=== PATIENT | female | born 1950 | race Caucasian/White ===

== ENCOUNTER 2024-05-06 08:24 | Outpatient (AMB) | payer SELFPAY ==
--- NOTE | 2024-05-06 08:06 | A.OFFPC_ITS ---
Vital Signs 05/06/24 08:37 Height 5 ft 1.26 in Weight 144 lb 2 oz BMI 27.0 BP 112/64 Blood Pressure Location Rt radial Position Sitting Respiration 12 Pulse 74 Pulse Source Pulse Oximeter Temp 98.5 F Temp Source Oral Pulse Oximetry (%) 97 Oxygen Delivery Method Room Air Intake Visit Reasons: Est care Elevated cholesterol Allergies No Known Allergies Allergy (Verified 05/06/24 08:33) Tobacco use date assessed: 05/06/24 Fall risk assessment: No Falls in past year Last assessed Fall Risk: 05/06/24 Dental Screening Dental Screen Date: 05/06/24 Did you have a dental visit in the last 12 months?: Yes HPI HPI Comments History of Present Illness Details The patient is a 73 year old female with a past medical history of hypothyroid, GERD, hyperlipidemia presenting for follow up Hypothyroid: On levothyroxine 88mcg daily GERD: Has hiatal hernia. Mammo 11/2023 Colonoscopy 2019 ROS CONSTITUTIONAL: Denies weight loss, fever and chills. HEENT: Denies changes in vision and hearing. RESPIRATORY: Denies SOB and cough. CV: Denies palpitations and CP GI: Denies abdominal pain, nausea, vomiting and diarrhea. : Denies dysuria and urinary frequency. MSK: Denies new myalgia and joint pain. SKIN: Denies rash and pruritus. NEUROLOGICAL: Denies headache PSYCHIATRIC: Denies recent changes in mood. PHYSICAL EXAM: GENERAL: Alert and oriented x 3. NAD EYES: EOMI. Anicteric. HENT: Moist mucous membranes. No scleral icterus. No cervical lymphadenopathy. LUNGS: Clear to auscultation bilaterally. CARDIOVASCULAR: Regular rate and rhythm. No murmur. No JVD. ABDOMEN: Soft, non-tender +bs EXTREMITIES: No edema. Non-tender. SKIN: No rashes or lesions. Warm. NEUROLOGIC: No focal neurological deficits. CN II-XII grossly intact PSYCHIATRIC: Cooperative. Appropriate mood and affect [facility] Medical History (Updated 05/11/24 @ 11:52 by Magalys Linares MD) Wrist lump Stress incontinence Right inguinal hernia Hypothyroidism Hyperlipidemia GERD (gastroesophageal reflux disease) Family History (Updated 05/06/24 @ 08:09 by Aria Robert CMA) Mother Seizure disorder Paternal Grandmother Myocardial infarction Social History (Updated 05/06/24 @ 08:36 by NANCY Alberto Housing: House Patient Tobacco Use Status: Never used Tobacco e-Cigarette/Vaping Use: Never Used Second Hand Smoke Exposure: Yes (past) Current occupational status: retired Cognitive needs: No Hearing needs: Yes (hearing aids) Vision needs: No Questionnaire PHQ-9 Over the last 2 weeks, how often have you been bothered by any of the following problems? 1. Little interest or pleasure in doing things: not at all 2. Feeling down, depressed, or hopeless: not at all 3. Trouble falling or staying asleep, or sleeping too much: not at all 4. Feeling tired or having little energy: not at all 5. Poor appetite or overeating: not at all 6. Feeling bad about yourself - or that you are a failure or have let yourself or your family down: not at all 7. Trouble concentrating on things, such as reading the newspaper or watching television: not at all 8. Moving or speaking so slowly that other people could have noticed. Or the opposite - being so fidgety or restless that you have been moving around a lot more than usual: not at all 9. Thoughts that you would be better off or of hurting yourself in some way: not at all Total score: 0 Depression Screening Interpretation: Negative Depression Screening Done: Yes 49235 - PHQ-9 Billing: Yes Source: Developed by Drs. Samy Dougherty, Natali Gallegos, Kushal West and colleagues, with an educational jose from [employer] Thrive Questionnaire Date Thrive assessed: 05/06/24 I am a: Patient What is your living situation today?: I have a steady place to live Within the past 12 months, did the food you bought not last and you didn't have the money to get more?: Never true Within the past 12 months, did you worry whether your food would run out before you got money to buy more?: Never true Do you have trouble paying for medicines?: No Do you have trouble getting transportation to medical appointments?: No Do you have trouble paying your heating and electricity bill?: No Do you have trouble taking care of your child, family member or friend?: No Do you have trouble with day-to-day activities such as bathing, preparing meals, shopping, managing finances, etc.?: No Are you currently unemployed and looking for a job?: No Are you interested in more education?: No Please select the resources that you would like help with: None Currently or been in a relationship where the following occur: no concerns reported THRIVE Score: 0 AUDIT C Alcohol Use Questionnaire (AUDIT-C) 1. How often do you have a drink containing alcohol?: Never 3. How often do you have six or more drinks on one occasion?: Never Total Score: 0 COBY-7 AMB Questionnaire COBY-7 Date COBY - 7 assessed: 05/06/24 Feeling nervous, anxious, or on edge: 0 = Not at all Not being able to stop or control worryin = Not at all Worrying too much about different things: 0 = Not at all Trouble relaxin = Not at all Being so restless that it is hard to sit still: 0 = Not at all Becoming easily annoyed or irritable: 0 = Not at all Feeling afraid as if something awful might happen: 0 = Not at all Total COBY-7 score (0-4 normal; 5-9 mild; 10-14 moderate; 15-21 severe): 0 Source: Developed by Drs. Samy Dougherty, Natali Gallegos, Kushal West and colleagues, with an educational jose from [employer] COBY-7 Assessment Billing COBY-7 Assessment Tool: COBY-7 Assessment 13138 Physical exam (Primary Care) Vital Signs: Last Vital Signs Temp 98.5 F 05/06/24 08:37 Pulse 74 05/06/24 08:37 Resp 12 05/06/24 08:37 BP 112/64 05/06/24 08:37 Pulse Ox 97 05/06/24 08:37 Oxygen Delivery Method Room Air 05/06/24 08:37 BMI result Body Mass Index 27.0 Tobacco/Smoking Status: Tobacco use Status Tobacco use date assessed 05/06/24 05/06/24 08:41 Patient Tobacco Use Status Never used Tobacco 05/06/24 08:41 e-Cigarette/Vaping Use Never Used 05/06/24 08:41 PHQ-9: PHQ-9 Score PHQ-9: Total score 0 05/06/24 09:56 Depression Screening Interpretation: Negative Thrive Assessment: Date of Thrive Assessment Date Thrive assessed 05/06/24 05/06/24 08:45 Currently or been in a relationship where the following occur: no concerns reported Assessment and Plan Assessment & Plan (1) GERD (gastroesophageal reflux disease): Code(s): K21.9 - Gastro-esophageal reflux disease without esophagitis Qualifiers: Esophagitis presence: esophagitis presence not specified Qualified Code(s): K21.9 - Gastro-esophageal reflux disease without esophagitis (2) Hyperlipidemia: Code(s): E78.5 - Hyperlipidemia, unspecified Qualifiers: Hyperlipidemia type: mixed hyperlipidemia Qualified Code(s): E78.2 - Mixed hyperlipidemia (3) Hypothyroidism: Code(s): E03.9 - Hypothyroidism, unspecified Qualifiers: 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
[2024-05-06 08:37] VITALS: BP 112/64; PULSE 74; RESP 12; TEMP 36.9; O2SAT 97; BMI 27.0
== END 2024-05-06 10:02 | disposition home or self-care (01) ==
PROVIDERS: Visit Provider Internal Medicine
DX: K21.9 Gastro-esophageal reflux disease without esophagitis (principal); E78.2 Mixed hyperlipidemia; E06.3 Autoimmune thyroiditis; R09.A2 Foreign body sensation, throat
CPT/HCPCS: 99214

== ENCOUNTER 2024-11-17 08:17 | Outpatient (AMB) | payer MEDICARE, SELFPAY ==
--- NOTE | 2024-11-17 08:24 | MHC.PC.OV ---
Vital Signs 11/17/24 08:26 Height 5 ft 1.26 in Weight 146 lb 6 oz BMI 27.4 BP 120/72 Blood Pressure Location Lt brachial Position Sitting Pulse 77 Pulse Source Pulse Oximeter Pulse Oximetry (%) 94 Oxygen Delivery Method Room Air Intake Visit Reasons: annual wellness Intake Note: Physical [employer] Officer Required: No Allergies No Known Allergies Allergy (Verified 11/17/24 08:25) Tobacco use date assessed: 11/17/24 Dental Screening Dental Screen Date: 05/06/24 HPI HPI Comments History of Present Illness Details The patient is a 74 year old female with a past medical history of hypothyroid, GERD, hyperlipidemia presenting for AWV Hypothyroid: On levothyroxine 88mcg daily. Denies hyper/hypothyroid symptoms GERD: Has hiatal hernia. Not taking PPI. Has infrequent heartburn, burping Mammo 11/2023 Colonoscopy 2018-Dr Ortiz Eye doctor-Dr Jonathon GARCIA reviewed. 01/12 memory. Neg depression. Neg fall risk. Independent ADLs. Care team reviewed. Medications reconciled ROS CONSTITUTIONAL: Denies weight loss, fever and chills. HEENT: Denies changes in vision and hearing. RESPIRATORY: Denies SOB and cough. CV: Denies palpitations and CP GI: Denies abdominal pain, nausea, vomiting and diarrhea. : Denies dysuria and urinary frequency. MSK: Denies new myalgia and joint pain. SKIN: Denies rash and pruritus. NEUROLOGICAL: Denies headache PSYCHIATRIC: Denies recent changes in mood. PHYSICAL EXAM: GENERAL: Alert and oriented x 3. NAD EYES: EOMI. Anicteric. HENT: Moist mucous membranes. No scleral icterus. No cervical lymphadenopathy. LUNGS: Clear to auscultation bilaterally. CARDIOVASCULAR: Regular rate and rhythm. No murmur. No JVD. ABDOMEN: Soft, non-tender +bs EXTREMITIES: No edema. Non-tender. SKIN: No rashes or lesions. Warm. NEUROLOGIC: No focal neurological deficits. CN II-XII grossly intact PSYCHIATRIC: Cooperative. Appropriate mood and affect [facility] Medical History Wrist lump Stress incontinence Right inguinal hernia Hypothyroidism Hyperlipidemia GERD (gastroesophageal reflux disease) Family History Mother Seizure disorder Paternal Grandmother Myocardial infarction Social History Housing: House Alcohol intake: never Patient Tobacco Use Status: Never used Tobacco e-Cigarette/Vaping Use: Never Used Second Hand Smoke Exposure: Yes (past) Use of substances other than those prescribed or required for medical reasons: No Current occupational status: retired Cognitive needs: No Hearing needs: Yes (hearing aids) Vision needs: No Questionnaire PHQ-9 Over the last 2 weeks, how often have you been bothered by any of the following problems? 1. Little interest or pleasure in doing things: not at all 2. Feeling down, depressed, or hopeless: not at all 3. Trouble falling or staying asleep, or sleeping too much: not at all 4. Feeling tired or having little energy: not at all 5. Poor appetite or overeating: not at all 6. Feeling bad about yourself - or that you are a failure or have let yourself or your family down: not at all 7. Trouble concentrating on things, such as reading the newspaper or watching television: not at all 8. Moving or speaking so slowly that other people could have noticed. Or the opposite - being so fidgety or restless that you have been moving around a lot more than usual: not at all 9. Thoughts that you would be better off or of hurting yourself in some way: not at all Total score: 0 Depression Screening Interpretation: Negative Depression Screening Done: Yes 56066 - PHQ-9 Billing: Yes Source: Developed by Drs. Samy Dougherty, Natali Gallegos, Kushal West and colleagues, with an educational jose from [email or web address] Thrive Questionnaire Date Thrive assessed: 11/17/24 I am a: Patient What is your living situation today?: I have a steady place to live Within the past 12 months, did the food you bought not last and you didn't have the money to get more?: Never true Within the past 12 months, did you worry whether your food would run out before you got money to buy more?: Never true Do you have trouble paying for medicines?: No Do you have trouble getting transportation to medical appointments?: No Do you have trouble paying your heating and electricity bill?: No Do you have trouble taking care of your child, family member or friend?: No Do you have trouble with day-to-day activities such as bathing, preparing meals, shopping, managing finances, etc.?: No Are you currently unemployed and looking for a job?: No Are you interested in more education?: No Please select the resources that you would like help with: None Currently or been in a relationship where the following occur: No concerns reported THRIVE Score: 0 AUDIT C Alcohol Use Questionnaire (AUDIT-C) 1. How often do you have a drink containing alcohol?: Never Total Score: 0 COBY-7 AMB Questionnaire COBY-7 Date COBY - 7 assessed: 11/17/24 Feeling nervous, anxious, or on edge: 1 = Several days Not being able to stop or control worryin = Not at all Worrying too much about different things: 0 = Not at all Trouble relaxin = Not at all Being so restless that it is hard to sit still: 0 = Not at all Becoming easily annoyed or irritable: 0 = Not at all Feeling afraid as if something awful might happen: 0 = Not at all Total COBY-7 score (0-4 normal; 5-9 mild; 10-14 moderate; 15-21 severe): 1 Source: Developed by Drs. Samy Dougherty, Natali Gallegos, Kushal West and colleagues, with an educational jose from [employer] COBY-7 Assessment Billing COBY-7 Assessment Tool: COBY-7 Assessment 00972 Physical exam (Primary Care) Vital Signs: Last Vital Signs Pulse 77 11/17/24 08:26 BP 120/72 11/17/24 08:26 Pulse Ox 94 11/17/24 08:26 Oxygen Delivery Method Room Air 11/17/24 08:26 BMI result Body Mass Index 27.4 Tobacco/Smoking Status: Tobacco use Status Tobacco use date assessed 11/17/24 11/17/24 08:29 Patient Tobacco Use Status Never used Tobacco 11/17/24 08:29 e-Cigarette/Vaping Use Never Used 11/17/24 08:29 PHQ-9: PHQ-9 Score PHQ-9: Total score 0 11/17/24 08:29 Depression Screening Interpretation: Negative Thrive Assessment: Date of Thrive Assessment Date Thrive assessed 11/17/24 11/17/24 08:29 Currently or been in a relationship where the following occur: No concerns reported Coding Level of Care Code Est Pt Level 4 (14138) Diagnoses Medicare annual wellness visit, subsequent Z00.00 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 Additional Codes COBY-7 Assessment Billing - COBY-7 Assessment Tool: COBY-7 Assessment 38235 ([id number]) PHQ-9 - 41783 - PHQ-9 Billing: Yes ([id number]) Assessment & Plan Assessment & Plan (1) Medicare annual wellness visit, subsequent: Code(s): Z00.00 - Encounter for general adult medical examination without abnormal findings Category: Medical Plan: see HPI (2) Hypothyroidism: Code(s): E03.9 - Hypothyroidism, unspecified Category: Medical Qualifiers: 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 Panel Today E06.3 - Autoimmune thyroiditis, E78.2 - Mixed hyperlipidemia, K21.9 - Gastro-esophageal reflux disease without esophagitis Lipid Panel Today E06.3 - Autoimmune thyroiditis, E78.2 - Mixed hyperlipidemia, K21.9 - Gastro-esophageal reflux disease without esophagitis MM screening mammo BI Today Z12.31 - Encounter for screening mammogram for malignant neoplasm of breast
[2024-11-17 08:26] VITALS: BP 120/72; PULSE 77; O2SAT 94; BMI 27.4
== END 2024-11-17 09:12 | disposition home or self-care (01) ==
PROVIDERS: Visit Provider Internal Medicine
DX: Z00.00 Encounter for general adult medical examination without abnormal findings (principal); E06.3 Autoimmune thyroiditis

== ENCOUNTER → 2024-11-17 08:17 | Outpatient (BNVA) | payer MEDICARE, SELFPAY | PROVIDERS: Visit Provider Internal Medicine | DX: Z00.00 Encounter for general adult medical examination without abnormal findings (principal); E06.3 Autoimmune thyroiditis; K21.9 Gastro-esophageal reflux disease without esophagitis; E78.5 Hyperlipidemia, unspecified; Z79.899 Other long term (current) drug therapy | CPT/HCPCS: 96127; 99212 ==

== ENCOUNTER 2025-05-19 08:56 | Outpatient (AMB) | payer MEDICARE, SELFPAY ==
--- NOTE | 2025-05-19 09:01 | A.OFFPC_ITS ---
Vital Signs 05/19/25 09:05 Height 5 ft 1.26 in Weight 148 lb 2 oz BMI 27.7 BP 122/72 Blood Pressure Location Rt brachial Position Sitting Respiration 12 Pulse 76 Pulse Source Pulse Oximeter Temp 97.8 F Temp Source Oral Pulse Oximetry (%) 95 Oxygen Delivery Method Room Air Intake Visit Reasons: follow up Intake Note: Follow up [employer] Required: No Allergies No Known Allergies Allergy (Verified 05/19/25 09:04) Tobacco use date assessed: 05/19/25 Fall risk assessment: No Falls in past year Last assessed Fall Risk: 05/19/25 Dental Screening Dental Screen Date: 05/19/25 Did you have a dental visit in the last 12 months?: Yes Did you have a dental problem in the last 6 months where you did not have access to dental care?: No Was dental information given to patient?: Patient has dentist HPI HPI Comments History of Present Illness Details The patient is a 74 year old female with a past medical history of hypothyroid, GERD, hyperlipidemia presenting for follow up Hypothyroid: On levothyroxine 88mcg daily. Denies hyper/hypothyroid symptoms. GERD: Has hiatal hernia Not regularly taking PPI. infrequent heartburn, burping. has intermittent right central chest pain. Food intermittently gets stuck Stress urinary incontinence, some nocturia. Does pelvic lifts. Declines PT, urogyn at present Follows with Dr Quiroga, dermatology -needs new referral, overdue Mammo 11/2023 Colonoscopy 2018-Dr Ortiz Eye doctor-Dr Jonathon FOSTER see HPI PHYSICAL EXAM: GENERAL: Alert and oriented x 3. NAD EYES: EOMI. Anicteric. HENT: Moist mucous membranes. No scleral icterus. No cervical lymphadenopathy. LUNGS: Clear to auscultation bilaterally. CARDIOVASCULAR: Regular rate and rhythm. No murmur. No JVD. ABDOMEN: Soft, non-tender +bs EXTREMITIES: No edema. Non-tender. SKIN: No rashes or lesions. Warm. NEUROLOGIC: No focal neurological deficits. CN II-XII grossly intact PSYCHIATRIC: Cooperative. Appropriate mood and affect [facility] Medical History Wrist lump Stress incontinence Right inguinal hernia Hypothyroidism Hyperlipidemia GERD (gastroesophageal reflux disease) Family History Mother Seizure disorder Paternal Grandmother Myocardial infarction Social History Housing: House Alcohol intake: never Patient Tobacco Use Status: Never used Tobacco e-Cigarette/Vaping Use: Never Used Second Hand Smoke Exposure: Yes (past) Current occupational status: retired Cognitive needs: No Hearing needs: Yes (hearing aids) Vision needs: No Questionnaire Thrive Questionnaire Date Thrive assessed: 11/17/24 I am a: Patient What is your living situation today?: I have a steady place to live Within the past 12 months, did the food you bought not last and you didn't have the money to get more?: Never true Within the past 12 months, did you worry whether your food would run out before you got money to buy more?: Never true Do you have trouble paying for medicines?: No Do you have trouble getting transportation to medical appointments?: No Do you have trouble paying your heating and electricity bill?: No Do you have trouble taking care of your child, family member or friend?: No Do you have trouble with day-to-day activities such as bathing, preparing meals, shopping, managing finances, etc.?: No Are you currently unemployed and looking for a job?: No Are you interested in more education?: No Please select the resources that you would like help with: None Currently or been in a relationship where the following occur: No concerns reported THRIVE Score: 0 AUDIT C Alcohol Use Questionnaire (AUDIT-C) 1. How often do you have a drink containing alcohol?: Never 3. How often do you have six or more drinks on one occasion?: Never Total Score: 0 COBY-7 AMB Questionnaire COBY-7 Date COBY - 7 assessed: 11/17/24 Source: Developed by Drs. Samy Dougherty, Natali Gallegos, Kushal West and colleagues, with an educational jose from [employer]. Physical exam (Primary Care) Vital Signs: Last Vital Signs Temp 97.8 F 05/19/25 09:05 Pulse 76 05/19/25 09:05 Resp 12 05/19/25 09:05 BP 122/72 05/19/25 09:05 Pulse Ox 95 05/19/25 09:05 Oxygen Delivery Method Room Air 05/19/25 09:05 BMI result Body Mass Index 27.7 Tobacco/Smoking Status: Tobacco use Status Tobacco use date assessed 05/19/25 05/19/25 09:07 Patient Tobacco Use Status Never used Tobacco 05/19/25 09:03 e-Cigarette/Vaping Use Never Used 05/19/25 09:03 Thrive Assessment: Date of Thrive Assessment Date Thrive assessed 11/17/24 05/19/25 09:03 Currently or been in a relationship where the following occur: No concerns reported Coding Level of Care Code Est Pt Level 4 (56713) Complex EM visit Add On G2211 Diagnoses Mixed hyperlipidemia E78.2 Hyperlipidemia type: mixed hyperlipidemia 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 Gastroesophageal reflux disease, unspecified whether esophagitis present K21.9 Esophagitis presence: esophagitis presence not specified Assessment & Plan Assessment & Plan (1) Hyperlipidemia: Code(s): E78.5 - Hyperlipidemia, unspecified Category: Medical Qualifiers: Hyperlipidemia type: mixed hyperlipidemia Qualified Code(s): E78.2 - Mixed hyperlipidemia (2) Hypothyroidism: Code(s): E03.9 - Hypothyroidism, unspecified Category: Medical Qualifiers: 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 Lifestyle modification. EKG normal Hypothyroid-clinically and biochemically euthyroid GERD, dysphagia-referral to GI Orders: Orders Comprehensive Met. Panel 05/19/25 E06.3 - Autoimmune thyroiditis, E78.2 - Mixed hyperlipidemia, K21.9 - Gastro-esophageal reflux disease without esophagitis, R09.A2 - Foreign body sensation, throat Vitamin B12 and Folate 05/19/25 E06.3 - Autoimmune thyroiditis, E78.2 - Mixed hyperlipidemia, K21.9 - Gastro-esophageal reflux disease without esophagitis, R09.A2 - Foreign body sensation, throat TSH reflex Free T4 05/19/25 E06.3 - Autoimmune thyroiditis, E78.2 - Mixed hyperlipidemia, K21.9 - Gastro-esophageal reflux disease without esophagitis, R09.A2 - Foreign body sensation, throat Vitamin D 25-OH (D2 and D3) 05/19/25 E06.3 - Autoimmune thyroiditis, E78.2 - Mixed hyperlipidemia, K21.9 - Gastro-esophageal reflux disease without esophagitis, R09.A2 - Foreign body sensation, throat Referrals Dermatology Referral Z12.83 - Encounter for screening for malignant neoplasm of skin
[2025-05-19 09:05] VITALS: BP 122/72; PULSE 76; RESP 12; TEMP 36.6; O2SAT 95; BMI 27.7
== END 2025-05-19 10:08 | disposition home or self-care (01) ==
LOC: HO.HMCFM 08:57
PROVIDERS: PCP Internal Medicine; Visit Provider Internal Medicine
DX: E78.2 Mixed hyperlipidemia (principal); E06.3 Autoimmune thyroiditis; K21.9 Gastro-esophageal reflux disease without esophagitis

== ENCOUNTER → 2025-05-19 08:56 | Outpatient (BNVA) | payer MEDICARE, SELFPAY | PROVIDERS: PCP Internal Medicine; Visit Provider Internal Medicine | DX: E78.2 Mixed hyperlipidemia (principal); E06.3 Autoimmune thyroiditis; K21.9 Gastro-esophageal reflux disease without esophagitis; N39.3 Stress incontinence (female) (male); Z79.899 Other long term (current) drug therapy | CPT/HCPCS: 99212 ==

== ENCOUNTER 2025-05-19 10:15 | Outpatient (REF) | payer MEDICARE, SELFPAY ==
[2025-05-19 12:19] LABS: MANUAL DIFF FLAG NO
[2025-05-19 12:21] LABS: Hematocrit 41.6 % (37.0-47.0); Hemoglobin 14.0 g/dl (12.0-16.0); Imm Gran Abs Auto 0.05 X10*3/uL (0.00-0.03); Imm Gran Pct Auto 0.9 % (0.0-0.4); Lymphocytes Absolute Auto 1.6 X10*3/uL (1.2-4.9); Mean Corpuscular HGB Conc 33.7 g/dl (31.0-35.0); Mean Corpuscular Hemoglobin 30.9 pg (27.0-33.0); Mean Corpuscular Volume 91.8 fL (80.0-98.0); NRBC Abs Auto 0.000 X10*3/uL (0.0-0.012); NRBC Pct Auto 0.0 /100WBC (0.0-0.2); Platelet Count 223 X10*3/uL (160-400); Red Blood Count 4.53 X10*6/uL (4.20-5.50); White Blood Count 5.4 X10*3/uL (4.8-10.8)
[2025-05-19 14:44] LABS: Alanine Aminotransferase 25 U/L (0-31); Albumin Level 4.4 g/dL (3.5-5.0); Alkaline Phosphatase 40 U/L (39-117); Anion Gap 11 (12-20); Aspartate Amino Transferase 28 U/L (5-31); Blood Urea Nitrogen 19 mg/dL (9-16); Calcium 9.2 mg/dL (8.4-10.2); Carbon Dioxide 26 mmol/L (22-29); Chloride 108 mmol/L (96-108); Cholesterol 237 mg/dL (<200); Estimated Glomerular Filt Rate > 60; HDL Cholesterol 55 mg/dL (>40); Potassium 4.1 mmol/L (3.3-5.1); Sodium 141 mmol/L (135-145); Total Protein 6.8 g/dL (6.5-8.0); Triglycerides 207 mg/dL (<150)
[2025-05-19 16:16] LABS: Folate 14.2 ng/mL (> or = 4.0); Vitamin B12 842 pg/mL (200-900)
[2025-05-22 15:44] LABS: Vitamin D 25-OH, D2 <4 ng/mL; Vitamin D 25-OH, D3 31 ng/mL; Vitamin D 25-OH, Total 31 ng/mL (30-100)
== END 2025-05-19 10:16 | disposition home or self-care (01) ==
LOC: HO.WFDLDS 10:15
PROVIDERS: Visit Provider Internal Medicine
DX: E06.3 Autoimmune thyroiditis (principal); E78.2 Mixed hyperlipidemia; K21.9 Gastro-esophageal reflux disease without esophagitis; R09.A2 Foreign body sensation, throat
CPT/HCPCS: 36415; 80053; 80061; 82306; 82607; 82746; 84443; 85025